=== PATIENT | female | born 1980 | race Caucasian/White ===

== ENCOUNTER → 2019-04-29 08:36 | Outpatient (BNVA) | payer BC, SELFPAY | PROVIDERS: Family Provider Physician Assistant Medical; PCP Physician Assistant Medical; Visit Provider Nurse Practitioner Psychiatric/Mental Health | DX: F41.1 Generalized anxiety disorder (principal); F90.1 Attention-deficit hyperactivity disorder, predominantly hyperactive type; F17.299 Nicotine dependence, other tobacco product, with unspecified nicotine-induced disorders; F33.9 Major depressive disorder, recurrent, unspecified | CPT/HCPCS: 99214 ==

== ENCOUNTER → 2019-05-17 10:24 | Outpatient (BNVA) | payer BC, SELFPAY | PROVIDERS: Family Provider Physician Assistant Medical; PCP Physician Assistant Medical; Visit Provider Nurse Practitioner | DX: M54.9 Dorsalgia, unspecified (principal); M54.2 Cervicalgia; F17.290 Nicotine dependence, other tobacco product, uncomplicated; Z79.891 Long term (current) use of opiate analgesic; Z71.6 Tobacco abuse counseling | CPT/HCPCS: 99214 ==

== ENCOUNTER → 2019-05-27 08:54 | Outpatient (BNVA) | payer BC, SELFPAY | PROVIDERS: Family Provider Physician Assistant Medical; PCP Physician Assistant Medical; Visit Provider Nurse Practitioner Psychiatric/Mental Health | DX: F41.1 Generalized anxiety disorder (principal); F90.1 Attention-deficit hyperactivity disorder, predominantly hyperactive type; F17.299 Nicotine dependence, other tobacco product, with unspecified nicotine-induced disorders; F33.9 Major depressive disorder, recurrent, unspecified | CPT/HCPCS: 99214 ==

== ENCOUNTER → 2019-07-03 07:15 | Outpatient (BNVA) | payer BC, SELFPAY | PROVIDERS: Family Provider Physician Assistant Medical; PCP Physician Assistant Medical; Visit Provider Nurse Practitioner Psychiatric/Mental Health | DX: F33.9 Major depressive disorder, recurrent, unspecified (principal); F41.1 Generalized anxiety disorder; F90.1 Attention-deficit hyperactivity disorder, predominantly hyperactive type; F17.299 Nicotine dependence, other tobacco product, with unspecified nicotine-induced disorders | CPT/HCPCS: 99214 ==

== ENCOUNTER → 2019-08-14 07:37 | Outpatient (BNVA) | payer BC, SELFPAY | PROVIDERS: Family Provider Physician Assistant Medical; PCP Physician Assistant Medical; Visit Provider Nurse Practitioner Psychiatric/Mental Health | DX: F33.9 Major depressive disorder, recurrent, unspecified (principal); F41.1 Generalized anxiety disorder; F90.1 Attention-deficit hyperactivity disorder, predominantly hyperactive type; F17.299 Nicotine dependence, other tobacco product, with unspecified nicotine-induced disorders; Z79.899 Other long term (current) drug therapy | CPT/HCPCS: 99214 ==

== ENCOUNTER → 2019-08-19 15:45 | Outpatient (BNVA) | payer BC, SELFPAY | PROVIDERS: Family Provider Physician Assistant Medical; PCP Physician Assistant Medical; Visit Provider Nurse Practitioner Psychiatric/Mental Health | DX: Z79.899 Other long term (current) drug therapy (principal) | CPT/HCPCS: 80053; 84443; 85025 ==

== ENCOUNTER → 2019-08-28 07:31 | Outpatient (BNVA) | payer BC, SELFPAY | PROVIDERS: Family Provider Physician Assistant Medical; PCP Physician Assistant Medical; Visit Provider Nurse Practitioner Psychiatric/Mental Health | DX: F33.9 Major depressive disorder, recurrent, unspecified (principal); F41.1 Generalized anxiety disorder; F90.1 Attention-deficit hyperactivity disorder, predominantly hyperactive type; F17.299 Nicotine dependence, other tobacco product, with unspecified nicotine-induced disorders; Z79.899 Other long term (current) drug therapy | CPT/HCPCS: 99214 ==

== ENCOUNTER → 2019-09-02 10:50 | Outpatient (BNVA) | payer BC, SELFPAY | PROVIDERS: Family Provider Physician Assistant Medical; PCP Physician Assistant Medical; Visit Provider Nurse Practitioner Psychiatric/Mental Health | DX: Z79.899 Other long term (current) drug therapy (principal) | CPT/HCPCS: 80178 ==

== ENCOUNTER → 2019-09-05 09:46 | Outpatient (BNVA) | payer BC, SELFPAY | PROVIDERS: Family Provider Physician Assistant Medical; PCP Physician Assistant Medical; Visit Provider Anesthesiology | DX: G89.29 Other chronic pain (principal); M51.36 Other intervertebral disc degeneration, lumbar region; M47.896 Other spondylosis, lumbar region; M48.02 Spinal stenosis, cervical region; M50.020 Cervical disc disorder with myelopathy, mid-cervical region, unspecified level; F17.299 Nicotine dependence, other tobacco product, with unspecified nicotine-induced disorders; Z79.891 Long term (current) use of opiate analgesic; Z71.6 Tobacco abuse counseling | CPT/HCPCS: 99214 ==

== ENCOUNTER → 2019-09-12 07:38 | Outpatient (BNVA) | payer BC, SELFPAY | PROVIDERS: Family Provider Physician Assistant Medical; PCP Physician Assistant Medical; Visit Provider Nurse Practitioner Psychiatric/Mental Health | DX: F33.9 Major depressive disorder, recurrent, unspecified (principal); F41.1 Generalized anxiety disorder; F90.1 Attention-deficit hyperactivity disorder, predominantly hyperactive type; F17.299 Nicotine dependence, other tobacco product, with unspecified nicotine-induced disorders | CPT/HCPCS: 99214 ==

== ENCOUNTER → 2019-11-07 11:28 | Outpatient (BNVA) | payer BC, SELFPAY | PROVIDERS: Family Provider Physician Assistant Medical; PCP Physician Assistant Medical; Visit Provider Nurse Practitioner Psychiatric/Mental Health | DX: F33.9 Major depressive disorder, recurrent, unspecified (principal); F17.299 Nicotine dependence, other tobacco product, with unspecified nicotine-induced disorders; F41.1 Generalized anxiety disorder; F90.1 Attention-deficit hyperactivity disorder, predominantly hyperactive type | CPT/HCPCS: 99214 ==

== ENCOUNTER → 2019-11-13 09:14 | Outpatient (BNVA) | payer BC, SELFPAY | PROVIDERS: Family Provider Physician Assistant Medical; PCP Physician Assistant Medical; Visit Provider Nurse Practitioner | DX: G89.29 Other chronic pain (principal); M51.36 Other intervertebral disc degeneration, lumbar region; M54.2 Cervicalgia; F17.290 Nicotine dependence, other tobacco product, uncomplicated; Z79.891 Long term (current) use of opiate analgesic | CPT/HCPCS: 99214 ==

== ENCOUNTER → 2019-12-12 08:13 | Outpatient (BNVA) | payer BC, SELFPAY | PROVIDERS: Family Provider Physician Assistant Medical; PCP Physician Assistant Medical; Visit Provider Nurse Practitioner Psychiatric/Mental Health | DX: F33.9 Major depressive disorder, recurrent, unspecified (principal); F41.1 Generalized anxiety disorder; F90.1 Attention-deficit hyperactivity disorder, predominantly hyperactive type; F17.299 Nicotine dependence, other tobacco product, with unspecified nicotine-induced disorders | CPT/HCPCS: 99214 ==

== ENCOUNTER → 2020-01-01 07:56 | Outpatient (BNVA) | payer BC, SELFPAY | PROVIDERS: Family Provider Physician Assistant Medical; PCP Physician Assistant Medical; Visit Provider Nurse Practitioner Psychiatric/Mental Health | DX: F33.9 Major depressive disorder, recurrent, unspecified (principal); F41.1 Generalized anxiety disorder; F90.1 Attention-deficit hyperactivity disorder, predominantly hyperactive type; F17.299 Nicotine dependence, other tobacco product, with unspecified nicotine-induced disorders; F33.41 Major depressive disorder, recurrent, in partial remission | CPT/HCPCS: 99214 ==

== ENCOUNTER → 2020-01-08 08:54 | Outpatient (BNVA) | payer BC, SELFPAY | PROVIDERS: Family Provider Physician Assistant Medical; PCP Physician Assistant Medical; Visit Provider Anesthesiology | DX: G89.29 Other chronic pain (principal); M51.36 Other intervertebral disc degeneration, lumbar region; M47.896 Other spondylosis, lumbar region; M48.02 Spinal stenosis, cervical region; M50.020 Cervical disc disorder with myelopathy, mid-cervical region, unspecified level; F17.299 Nicotine dependence, other tobacco product, with unspecified nicotine-induced disorders; Z79.891 Long term (current) use of opiate analgesic | CPT/HCPCS: 99213; 99214 ==

== ENCOUNTER → 2020-01-29 08:10 | Outpatient (BNVA) | payer BC, SELFPAY | PROVIDERS: Family Provider Physician Assistant Medical; PCP Physician Assistant Medical; Visit Provider Nurse Practitioner Psychiatric/Mental Health | DX: F33.9 Major depressive disorder, recurrent, unspecified (principal); F41.1 Generalized anxiety disorder; F90.1 Attention-deficit hyperactivity disorder, predominantly hyperactive type; F17.299 Nicotine dependence, other tobacco product, with unspecified nicotine-induced disorders | CPT/HCPCS: 99214 ==

== ENCOUNTER → 2020-02-26 07:31 | Outpatient (BNVA) | payer BC, SELFPAY | PROVIDERS: Family Provider Physician Assistant Medical; PCP Physician Assistant Medical; Visit Provider Nurse Practitioner Psychiatric/Mental Health | DX: F33.9 Major depressive disorder, recurrent, unspecified (principal); F41.1 Generalized anxiety disorder | CPT/HCPCS: 99214 ==

== ENCOUNTER → 2020-03-06 09:27 | Outpatient (BNVA) | payer BC, SELFPAY | PROVIDERS: Family Provider Physician Assistant Medical; PCP Physician Assistant Medical; Visit Provider Nurse Practitioner | DX: G89.29 Other chronic pain (principal); M54.42 Lumbago with sciatica, left side; M54.41 Lumbago with sciatica, right side; M51.36 Other intervertebral disc degeneration, lumbar region; M50.020 Cervical disc disorder with myelopathy, mid-cervical region, unspecified level; M48.02 Spinal stenosis, cervical region; G25.81 Restless legs syndrome; F17.290 Nicotine dependence, other tobacco product, uncomplicated; Z79.891 Long term (current) use of opiate analgesic; Z71.6 Tobacco abuse counseling | CPT/HCPCS: 99213; 99214 ==

== ENCOUNTER → 2020-03-16 07:38 | Outpatient (BNVA) | payer BC, SELFPAY | PROVIDERS: Family Provider Physician Assistant Medical; PCP Physician Assistant Medical; Visit Provider Nurse Practitioner Psychiatric/Mental Health | DX: F33.9 Major depressive disorder, recurrent, unspecified (principal); F41.1 Generalized anxiety disorder; F90.1 Attention-deficit hyperactivity disorder, predominantly hyperactive type; F17.299 Nicotine dependence, other tobacco product, with unspecified nicotine-induced disorders | CPT/HCPCS: 99214 ==

== ENCOUNTER → 2020-04-20 07:52 | Outpatient (BNVA) | payer BC, SELFPAY | PROVIDERS: Family Provider Physician Assistant Medical; PCP Physician Assistant Medical; Visit Provider Nurse Practitioner Psychiatric/Mental Health | DX: F33.9 Major depressive disorder, recurrent, unspecified (principal); F41.1 Generalized anxiety disorder; F90.1 Attention-deficit hyperactivity disorder, predominantly hyperactive type; F17.299 Nicotine dependence, other tobacco product, with unspecified nicotine-induced disorders | CPT/HCPCS: 99213 ==

== ENCOUNTER → 2020-05-01 08:51 | Outpatient (BNVA) | payer BC, OTHER, SELFPAY | PROVIDERS: Family Provider Physician Assistant Medical; PCP Physician Assistant Medical; Visit Provider Nurse Practitioner | DX: G89.29 Other chronic pain (principal); M51.36 Other intervertebral disc degeneration, lumbar region; M50.020 Cervical disc disorder with myelopathy, mid-cervical region, unspecified level; M48.02 Spinal stenosis, cervical region; G25.81 Restless legs syndrome; F17.290 Nicotine dependence, other tobacco product, uncomplicated; Z79.1 Long term (current) use of non-steroidal anti-inflammatories (NSAID); Z79.891 Long term (current) use of opiate analgesic; Z71.6 Tobacco abuse counseling | CPT/HCPCS: 99214 ==

== ENCOUNTER → 2020-07-03 08:45 | Outpatient (BNVA) | payer OTHER, SELFPAY | PROVIDERS: Family Provider Physician Assistant Medical; PCP Physician Assistant Medical; Visit Provider Anesthesiology | DX: G89.29 Other chronic pain (principal); M51.36 Other intervertebral disc degeneration, lumbar region; M47.896 Other spondylosis, lumbar region; M48.02 Spinal stenosis, cervical region; M50.020 Cervical disc disorder with myelopathy, mid-cervical region, unspecified level; G25.81 Restless legs syndrome; F17.299 Nicotine dependence, other tobacco product, with unspecified nicotine-induced disorders; Z79.899 Other long term (current) drug therapy; Z79.891 Long term (current) use of opiate analgesic | CPT/HCPCS: 99214 ==

== ENCOUNTER → 2020-09-01 09:09 | Outpatient (BNVA) | payer OTHER, SELFPAY | PROVIDERS: Family Provider Physician Assistant Medical; PCP Physician Assistant Medical; Visit Provider Nurse Practitioner | DX: G89.29 Other chronic pain (principal); M51.36 Other intervertebral disc degeneration, lumbar region; M47.896 Other spondylosis, lumbar region; M50.020 Cervical disc disorder with myelopathy, mid-cervical region, unspecified level; M48.02 Spinal stenosis, cervical region; M25.551 Pain in right hip; G25.81 Restless legs syndrome; F17.299 Nicotine dependence, other tobacco product, with unspecified nicotine-induced disorders; Z79.891 Long term (current) use of opiate analgesic; Z71.6 Tobacco abuse counseling | CPT/HCPCS: 99214 ==

== ENCOUNTER → 2020-10-08 08:56 | Outpatient (BNVA) | payer OTHER, SELFPAY | PROVIDERS: Family Provider Physician Assistant Medical; PCP Physician Assistant Medical; Visit Provider Nurse Practitioner | DX: G89.29 Other chronic pain (principal); M51.36 Other intervertebral disc degeneration, lumbar region; M47.896 Other spondylosis, lumbar region; M50.020 Cervical disc disorder with myelopathy, mid-cervical region, unspecified level; M25.551 Pain in right hip; G25.81 Restless legs syndrome; F17.299 Nicotine dependence, other tobacco product, with unspecified nicotine-induced disorders; Z79.891 Long term (current) use of opiate analgesic | CPT/HCPCS: 99214 ==

== ENCOUNTER → 2020-11-04 10:07 | Outpatient (BNVA) | payer OTHER, SELFPAY | PROVIDERS: Family Provider Physician Assistant Medical; PCP Physician Assistant Medical; Visit Provider Anesthesiology | DX: G89.29 Other chronic pain (principal); M51.36 Other intervertebral disc degeneration, lumbar region; M47.896 Other spondylosis, lumbar region; M50.020 Cervical disc disorder with myelopathy, mid-cervical region, unspecified level; F17.299 Nicotine dependence, other tobacco product, with unspecified nicotine-induced disorders; M48.02 Spinal stenosis, cervical region; Z79.891 Long term (current) use of opiate analgesic | CPT/HCPCS: 99214 ==

== ENCOUNTER 2020-12-22 09:33 | Outpatient (CLI) | payer OTHER, SELFPAY ==
--- NOTE | 2020-12-22 08:30 | XR_ITS ---
WS: [id number] KUB, AP view, 12/22/2020 Clinical Data: KIDNEY STONE Comparison: KUB, 07/24/2018. Findings: No abnormal intraabdominal masses or calcifications are seen. There is no dilatated small bowel or ev idence of obstruction. There is a large amount of fecal material throughout the colon. The bladder is full. XR/XR KUB [id number] Impression: Negative for renal or ureteral calculi.
== END 2020-12-22 09:34 | disposition home or self-care (01) ==
LOC: RAD 09:37
PROVIDERS: PCP Physician Assistant Medical; Visit Provider Urology
DX: N20.0 Calculus of kidney (principal)
CPT/HCPCS: 74018; 81003

== ENCOUNTER → 2021-01-08 09:04 | Outpatient (BNVA) | payer OTHER, SELFPAY | PROVIDERS: PCP Physician Assistant Medical; Visit Provider Anesthesiology | DX: G89.29 Other chronic pain (principal); M51.36 Other intervertebral disc degeneration, lumbar region; M47.896 Other spondylosis, lumbar region; M50.020 Cervical disc disorder with myelopathy, mid-cervical region, unspecified level; M48.02 Spinal stenosis, cervical region; G25.81 Restless legs syndrome; F17.299 Nicotine dependence, other tobacco product, with unspecified nicotine-induced disorders; F17.210 Nicotine dependence, cigarettes, uncomplicated; Z79.899 Other long term (current) drug therapy; Z79.891 Long term (current) use of opiate analgesic; Z79.1 Long term (current) use of non-steroidal anti-inflammatories (NSAID) | CPT/HCPCS: 99214 ==

== ENCOUNTER 2022-06-16 12:42 | Outpatient (CLI) | payer OTHER, SELFPAY ==
--- NOTE | 2022-06-16 13:01 | MR_ITS ---
WS: [id number] MRI LUMBAR SPINE NONCONTRAST TECHNIQUE: Sagittal T1, T2 and STIR imaging. Axial T1 and T2 imaging. CLINICAL INFORMATION: LUMBOSACRAL DISC DISODER /SPONDYLOSIS COMPARISON: MRI 2019 FINDINGS: Mild lumbar curve. No acute compression. No high-grade central canal stenosis. Retroverted and retrof lexed uterus. Counting performed from the craniocervical junction. S1 is partially lumbarized. Disc s pace at S1-S2. Disc space narrowing L5-S1 has progressed slightly since 2019 L1-L2: Normal. L2-L3: Mild facet arthropathy. Spinal canal and foramen are patent. L3-L4: No significant disc bulging. Mild facet arthropathy. Spinal canal and foramen are patent. L4-L5: Mild annular bulging. Moderate facet arthropathy. Small facet effusions. Spinal canal and fora men are patent. L5-S1: Mild disc osteophytic ridging. Moderate facet arthropathy. Small facet effusions. Spinal canal and foramen are patent. Visualized pelvic bony structures: Normal. Paravertebral soft tissues: Normal. MR/MR lumbar spine wo con* [id number] IMPRESSION: 1. Mild lumbar curve. No acute compression. No high-grade central canal stenos is. 2. S1 is partially lumbarized. Residual disc space at S1-S2. 3. Moderate facet arthropathy L4-L5 and L5-S1 with small facet effusions char[place] tible with mild synovitis. 4. Retroverted and retroflexed uterus. 5. Partially visualized LEFT ovarian cyst measuring 2.5 cm.
== END 2022-06-16 12:43 | disposition home or self-care (01) ==
PROVIDERS: PCP Family Medicine; Visit Provider Anesthesiology
DX: M51.17 Intervertebral disc disorders with radiculopathy, lumbosacral region (principal); M47.817 Spondylosis without myelopathy or radiculopathy, lumbosacral region
CPT/HCPCS: 72148

== ENCOUNTER → 2024-08-05 09:37 | Outpatient (BNVA) | payer OTHER, SELFPAY | PROVIDERS: Visit Provider Nurse Practitioner | DX: R53.83 Other fatigue (principal) | CPT/HCPCS: 80053; 80061; 84436; 84443; 84481; 85025 ==

== ENCOUNTER → 2024-12-23 11:31 | Outpatient (BNVA) | payer OTHER, SELFPAY | PROVIDERS: PCP Nurse Practitioner; Visit Provider Nurse Practitioner | DX: Z12.4 Encounter for screening for malignant neoplasm of cervix (principal) | CPT/HCPCS: 88175 ==

== ENCOUNTER 2024-12-30 09:41 | Outpatient (CLI) | payer OTHER, SELFPAY ==
--- NOTE | 2024-12-30 10:00 | MM_ITS ---
WS: [id number] SCREENING DIGITAL BREAST TOMOSYNTHESIS MAMMOGRAM WITH CAD HISTORY: Z12.39 - Encounter for other screening for malignant neop... COMPARISON: None available. Bilateral CC and MLO with tomosynthesis and synthetic mammography submitted. Computer aided detection analyzed. Breast composition: There are scattered areas of fibroglandular density. Partially obscured mass in the lateral RIGHT breast seen best on the CC projection measures 4 x 7 mm. Suspect this is just above the nipple line on the lateral projection. There is a dense asymmetry upper outer quadrant LEFT breast with no distortion. No suspicious grouping of calcifications within either breast. MM/MM scr BI tomosynthesis [id number] IMPRESSION: BI-RADS: 0 - Incomplete: Need additional imaging evaluation. FOLLOW UP: Need Additional Imaging RIGHT breast: Spot compression views (CC and MLO). True ML. Ultrasound to follo w if abnormality persists.
== END 2024-12-30 09:42 | disposition home or self-care (01) ==
PROVIDERS: PCP Nurse Practitioner; Visit Provider Nurse Practitioner
DX: Z12.31 Encounter for screening mammogram for malignant neoplasm of breast (principal); R92.323 Mammographic fibroglandular density, bilateral breasts; R92.8 Other abnormal and inconclusive findings on diagnostic imaging of breast; N64.89 Other specified disorders of breast
CPT/HCPCS: 77063; 77067

== ENCOUNTER 2025-01-20 09:05 | Outpatient (CLI) | payer OTHER, SELFPAY ==
--- NOTE | 2025-01-20 09:00 | MM_ITS ---
WS: [email or web address] ADDITIONAL VIEWS RIGHT MAMMOGRAM WITH DIGITAL BREAST TOMOSYNTHESIS. RIGHT BREAST ULTRASOUND HISTORY: Z12.39 - Encounter for other screening for malignant neop... COMPARISON: 12/30/2024 screening mammogram RIGHT MAMMOGRAM: Spot compression views and true ML with digital breast tomosynthesis and SM. Breast composition: There are scattered areas of fibroglandular density. Reidentified is a partially obscured mass in the upper outer quadrant of the RIGHT breast measuring 6 x 5 x 6 mm. Partially obscured but well-circumscribed otherwise. Mass in the middle depth approximately 10:00. There is an additional asymmetry in the upper outer quadrant of the RIGHT breast, posterior depth. Asymmetry partially resolves with additional spot compression views. This asymmetry is close to the 10:00 o'clock axis at a posterior depth. RIGHT BREAST ULTRASOUND 2-D and color Doppler imaging submitted. Ultrasound of the upper outer quadrant RIGHT breast demonstrates an ovoid cyst at 9:00, 2 cm from nipple measuring 0.6 x 0.6 x 0.3 cm. Corresponds to the mass which is partially obscured. There is no shadowing or additional asymmetry in the upper outer quadrant. MM/MM diag RT tomosynthesis [id number] IMPRESSION: BI-RADS: 2 - Benign. FOLLOW UP: 1 Year Follow-up Ovoid cyst 9:00 RIGHT breast corresponds to the previously described mass. No a dditional abnormalities. Return to annual screening mammography.
--- NOTE | 2025-01-20 09:30 | US_ITS ---
WS: [email or web address] ADDITIONAL VIEWS RIGHT MAMMOGRAM WITH DIGITAL BREAST TOMOSYNTHESIS. RIGHT BREAST ULTRASOUND HISTORY: Z12.39 - Encounter for other screening for malignant neop... COMPARISON: 12/30/2024 screening mammogram RIGHT MAMMOGRAM: Spot compression views and true ML with digital breast tomosynthesis and SM. Breast composition: There are scattered areas of fibroglandular density. Reidentified is a partially obscured mass in the upper outer quadrant of the RIGHT breast measuring 6 x 5 x 6 mm. Partially obscured but well-circumscribed otherwise. Mass in the middle depth approximately 10:00. There is an additional asymmetry in the upper outer quadrant of the RIGHT breast, posterior depth. Asymmetry partially resolves with additional spot compression views. This asymmetry is close to the 10:00 o'clock axis at a posterior depth. RIGHT BREAST ULTRASOUND 2-D and color Doppler imaging submitted. Ultrasound of the upper outer quadrant RIGHT breast demonstrates an ovoid cyst at 9:00, 2 cm from nipple measuring 0.6 x 0.6 x 0.3 cm. Corresponds to the mass which is partially obscured. There is no shadowing or additional asymmetry in the upper outer quadrant. US/US breast RT limited* [id number] IMPRESSION: BI-RADS: 2 - Benign. FOLLOW UP: 1 Year Follow-up Ovoid cyst 9:00 RIGHT breast corresponds to the previously described mass. No a dditional abnormalities. Return to annual screening mammography.
== END 2025-01-20 09:06 | disposition home or self-care (01) ==
LOC: RAD 09:05
PROVIDERS: PCP Nurse Practitioner; Visit Provider Nurse Practitioner
DX: Z12.39 Encounter for other screening for malignant neoplasm of breast (principal); R92.323 Mammographic fibroglandular density, bilateral breasts; N63.11 Unspecified lump in the right breast, upper outer quadrant; N64.89 Other specified disorders of breast
CPT/HCPCS: 76642; 77061; G0279